=== PATIENT | female | born 2000 | race Two or more races ===

== ENCOUNTER 2022-12-21 09:27 | Emergency (ER) | payer OTHER ==
[~2022-12-21] VITALS: Ht 157.5 cm; Wt 68.0 kg
== END 2022-12-21 15:04 | disposition home or self-care (01) ==
LOC: ER 09:27
DX: O26.892 Other specified pregnancy related conditions, second trimester (principal); Z3A.17 17 weeks gestation of pregnancy; S39.81XA Other specified injuries of abdomen, initial encounter; W18.39XA Other fall on same level, initial encounter; Y93.9 Activity, unspecified; Y92.9 Unspecified place or not applicable

== ENCOUNTER 2023-03-24 12:39 | Inpatient (IN) | payer OTHER ==
[~2023-03-24] VITALS: Ht 157.5 cm; Wt 76.2 kg
[2023-03-24] MEDS ORDERED: IRON236 MG (13:04)
[2023-03-24] MEDS ORDERED: PRENATAL TABLE1 EAC4 PO (20:16)
[2023-03-24] MEDS ORDERED: ZOFRAN8 MG PO (20:17)
== END 2023-03-25 17:01 | disposition home or self-care (01) | DRG 833 ==
LOC: ER 12:39 → OB/GYN 17:33 → LDR 17:33
PROVIDERS: General Practice; ADMIT Specialist; ATTEND Specialist
PROC: 30233N1 Transfusion of Nonautologous Red Blood Cells into Peripheral Vein, Percutaneous Approach (ICD-10-PCS; principal; 2023-03-24)
PROC: 4A1HXCZ Monitoring of Products of Conception, Cardiac Rate, External Approach (ICD-10-PCS; 2023-03-24)
DX: O99.013 Anemia complicating pregnancy, third trimester (principal); D50.0 Iron deficiency anemia secondary to blood loss (chronic); Z3A.30 30 weeks gestation of pregnancy; Z20.822 Contact with and (suspected) exposure to COVID-19

== ENCOUNTER 2023-04-21 13:25 | Outpatient (CLI) | payer OTHER ==
[~2023-04-21 13:25] MED LIST: IRON236 MG; PRENATAL TABLE1 EAC4 PO; ZOFRAN8 MG PO
[2023-04-21 14:52] LABS: HEMATOCRIT 33.6 % (36.0-45.00); HEMOGLOBIN 11.5 g/dL (12.0-15.00); MEAN CELL VOLUME 85.7 fL (80.00-100.00); MEAN CORPUSCULAR HEMOGLOBIN 29.4 pg (27.00-32.0); MEAN CORPUSCULAR HGB CONC 34.4 g/dl (32.0-36.0); PLATELET COUNT 151 K/uL (150-450); RED BLOOD COUNT 3.92 M/uL (4.00-6.00)
[2023-04-21 15:21] LABS: ALBUMIN 2.5 gm/dL (3.4-5.0); BILIRUBIN TOTAL 0.31 mg/dL (0.3-1.2); CALCIUM 8.9 mg/dL (8.5-10.1); CREATININE SERUM 0.39 mg/dL (0.55-1.02); GFR 201.91; GLOBULINA 3.4 G/DL (2.4-3.5); POTASSIUM 3.89 mEq/L (3.5-5.1); TOTAL PROTEIN 5.9 gm/dL (6.4-8.2)
== END 2023-04-22 10:35 | disposition home or self-care (01) ==
LOC: OBS/DEL 13:25
PROVIDERS: Obstetrics & Gynecology; ATTEND Specialist
DX: O23.13 Infections of bladder in pregnancy, third trimester (principal); O23.33 Infections of other parts of urinary tract in pregnancy, third trimester; N39.0 Urinary tract infection, site not specified; Z3A.34 34 weeks gestation of pregnancy

== ENCOUNTER 2023-05-14 18:24 | Outpatient (CLI) | payer OTHER ==
[2023-05-14 19:06] LABS: HEMATOCRIT 33.9 % (36.0-45.00); HEMOGLOBIN 11.6 g/dL (12.0-15.00); MEAN CELL VOLUME 85.7 fL (80.00-100.00); MEAN CORPUSCULAR HEMOGLOBIN 29.2 pg (27.00-32.0); MEAN CORPUSCULAR HGB CONC 34.1 g/dl (32.0-36.0); PLATELET COUNT 173 K/uL (150-450); RED BLOOD COUNT 3.95 M/uL (4.00-6.00); RED CELL DISTRIBUTION WIDTH 15.9 % (11.5-14.5)
[2023-05-14 19:25] LABS: INR 0.97; PARTIAL THROMBOPLASTIN TIME 23.8 SECONDS (22.0-34.0); PROTHROMBIN TIME 10.2 SECONDS (9.0-11.5)
[2023-05-14 19:37] LABS: ALBUMIN 2.7 gm/dL (3.4-5.0); BILIRUBIN TOTAL 0.32 mg/dL (0.3-1.2); CALCIUM 8.7 mg/dL (8.5-10.1); CREATININE SERUM 0.59 mg/dL (0.55-1.02); GFR 125.22; GLOBULINA 3.6 G/DL (2.4-3.5); POTASSIUM 3.87 mEq/L (3.5-5.1); TOTAL PROTEIN 6.3 gm/dL (6.4-8.2)
[2023-05-14 21:02] LABS: URINE APPEARANCE Cloudy; URINE BILIRRUBIN Negative (NEGATIVE); URINE BLOOD NHT; URINE COLOR Dark Yellow; URINE GLUCOSE Negative (NEGATIVE); URINE LEUKOCYTE Moderate; URINE NITRATE Negative; URINE PROTEIN 30 (NEGATIVE)
[2023-05-14 21:06] LABS: URINE BACTERIA 5856.2 uL (0.0-1933); URINE EPITHELIAL CELLS 138.8 uL (0.0-38.8); URINE RBC 6.8 uL (0.0-20.8); URINE WBC 136.5 uL (0.0-23.2)
[2023-05-15 21:15] LABS: URINE PROT QUANT 24HR 17.2 MG/DL
[2023-05-15 21:16] LABS: URINE PROT QUANT 24 HR 223.6 MG/24HR (42-225)
== END 2023-05-15 17:16 | disposition home or self-care (01) ==
LOC: OBS/DEL 18:24
PROVIDERS: ATTEND Specialist
DX: O26.893 Other specified pregnancy related conditions, third trimester (principal); Z3A.37 37 weeks gestation of pregnancy

== ENCOUNTER 2023-05-19 19:53 | Inpatient (IN) | payer OTHER ==
[~2023-05-19] VITALS: Ht 157.5 cm; Wt 80.7 kg
[2023-05-19 20:11] LABS: HEMATOCRIT 35.2 % (36.0-45.00); HEMOGLOBIN 11.5 g/dL (12.0-15.00); MEAN CELL VOLUME 86.9 fL (80.00-100.00); MEAN CORPUSCULAR HEMOGLOBIN 28.5 pg (27.00-32.0); MEAN CORPUSCULAR HGB CONC 32.8 g/dl (32.0-36.0); PLATELET COUNT 169 K/uL (150-450); RED BLOOD COUNT 4.05 M/uL (4.00-6.00); RED CELL DISTRIBUTION WIDTH 16.1 % (11.5-14.5)
[2023-05-19 20:12] LABS: PH,URINE 6.5 (5.0-8.0); URINE APPEARANCE Cloudy; URINE BILIRRUBIN Negative (NEGATIVE); URINE BLOOD Negative; URINE COLOR Yellow; URINE GLUCOSE Negative (NEGATIVE); URINE LEUKOCYTE Small; URINE NITRATE Negative; URINE PROTEIN 30 (NEGATIVE)
[2023-05-19 20:13] LABS: URINE BACTERIA 6826.4 uL (0.0-1933); URINE RBC 8.6 uL (0.0-20.8); URINE WBC 68.1 uL (0.0-23.2)
[2023-05-19 20:29] LABS: URINE EPITHELIAL CELLS > 201.7 uL (0.0-38.8)
[2023-05-19 20:30] LABS: URINE MUCUS MODERATE
[2023-05-19 20:31] LABS: INR 0.94; PARTIAL THROMBOPLASTIN TIME 23.3 SECONDS (22.0-34.0); PROTHROMBIN TIME 9.9 SECONDS (9.0-11.5)
[2023-05-19 20:36] LABS: ALBUMIN 2.7 gm/dL (3.4-5.0); BILIRUBIN TOTAL 0.31 mg/dL (0.3-1.2); CALCIUM 8.9 mg/dL (8.5-10.1); CREATININE SERUM 0.58 mg/dL (0.55-1.02); GFR 127.72; GLOBULINA 3.7 G/DL (2.4-3.5); POTASSIUM 4.02 mEq/L (3.5-5.1); TOTAL PROTEIN 6.4 gm/dL (6.4-8.2)
[2023-05-21 01:23] LABS: ABG PH 7.286 (7.35-7.45); ABG pCO2 46.1 mmHg (35-45); BASE EXCESS -5.2 mmol/l; BICARBONATE 21.5 mmol/l (23-25); SaO2 35.7 %; Tco2 22.9 mmol/l
[2023-05-21 02:42] LABS: o2 21 %
== END 2023-05-22 13:37 | disposition home or self-care (01) | DRG 807 ==
LOC: OBS/DEL 19:53 → LDR 21:39 → OB/GYN 05-21 07:48
PROVIDERS: ADMIT Specialist; ATTEND Specialist
PROC: 3E0P7VZ Introduction of Hormone into Female Reproductive, Via Natural or Artificial Opening (ICD-10-PCS; 2023-05-19)
PROC: 4A1HXCZ Monitoring of Products of Conception, Cardiac Rate, External Approach (ICD-10-PCS; 2023-05-19)
PROC: 10E0XZZ Delivery of Products of Conception, External Approach (ICD-10-PCS; principal; 2023-05-20)
PROC: 0UQMXZZ Repair Vulva, External Approach (ICD-10-PCS; 2023-05-20)
PROC: 3E033VJ Introduction of Other Hormone into Peripheral Vein, Percutaneous Approach (ICD-10-PCS; 2023-05-20)
DX: O70.0 First degree perineal laceration during delivery (principal); Z37.0 Single live birth; O99.824 Streptococcus B carrier state complicating childbirth; Z3A.38 38 weeks gestation of pregnancy; Z20.822 Contact with and (suspected) exposure to COVID-19

== ENCOUNTER 2023-08-05 15:28 | Emergency (ER) | payer OTHER ==
[~2023-08-05] VITALS: Ht 157.5 cm; Wt 68.0 kg
[2023-08-05 17:11] LABS: HEMATOCRIT 34.6 % (36.0-45.00); HEMOGLOBIN 11.6 g/dL (12.0-15.00); MEAN CELL VOLUME 86.2 fL (80.00-100.00); MEAN CORPUSCULAR HEMOGLOBIN 28.8 pg (27.00-32.0); MEAN CORPUSCULAR HGB CONC 33.4 g/dl (32.0-36.0); PLATELET COUNT 377 K/uL (150-450); RED BLOOD COUNT 4.01 M/uL (4.00-6.00); RED CELL DISTRIBUTION WIDTH 13.6 % (11.5-14.5)
[2023-08-05] MEDS ORDERED: BACTRIM DS TAB1 EACH PO (18:06)
== END 2023-08-05 18:21 | disposition home or self-care (01) ==
LOC: ER 15:28
PROVIDERS: Nurse Practitioner Family
DX: N61.0 Mastitis without abscess (principal)